=== PATIENT | male | born 1985 | race Caucasian/White ===

== ENCOUNTER 2019-04-03 10:00 | Emergency (ER) | payer MEDICAID, OTHER ==
[~2019-04-03] VITALS: Ht 182.9 cm; Wt 81.6 kg
[2019-04-03] MEDS ORDERED: SODIUM CHLORIDE 0.9% 1,000 ML IVB ONE (10:36)
[2019-04-03] MEDS ORDERED: PANTOPRAZOLE 40 MG/10 ML VIAL INJ IV STA (10:36)
[2019-04-03] MEDS ORDERED: ALUM & MAG HYDROX-SIMETH LIQ(MAALOX) 30 ML PO ONE (10:45)
[2019-04-03] MEDS ORDERED: ONDANSETRON HCL 4 MG/2 ML VIAL IV ONE (10:45)
[2019-04-03] MEDS ORDERED: FAMOTIDINE 20 MG TAB PO ONE (10:45)
[2019-04-03] MEDS ORDERED: DONNATAL 5ml ORAL Elix (BELLADONNA ALK-PHENOBARB) PO ONE (10:45)
[2019-04-03 10:57] LABS: Basophils # (auto) 0.1 uL; Eosinophils # (auto) 0 uL; Lymphocytes # (auto) 1.1 uL; Monocytes # (auto) 0.3 uL; Neutrophils # (auto) 2.3 uL; Nucleated Red Blood Cells % 0.1 %
[2019-04-03 10:59] LABS: Basophils % (auto) 2.7 % (0.0-2.0); Eosinophils % (auto) 0.4 % (0.0-7.0); Hematocrit 50.7 % (41.0-53.0); Hemoglobin 17.7 g/dL (13.5-17.5); Lymphocytes % (auto) 28.8 % (10.0-50.0); Mean Corpuscular Hemoglobin 37.8 pg (28.0-32.0); Mean Corpuscular Hgb Conc. 34.8 g/dL (32.0-36.0); Mean Corpuscular Volume 108.6 fL (80.0-100.0); Monocytes % (auto) 7.3 % (0.0-12.0); Neutrophils % (auto) 60.8 % (37.0-80.0); Platelet Count (auto) 205 10^3/uL (140-450); Red Blood Cells 4.67 10^6/uL (4.5-5.90); Red Cell Distribution Width 14.2 % (11.8-14.3); White Blood Cell 3.9 10^3/uL (4.4-10.8)
[2019-04-03 11:13] LABS: INR 1.08 (0.9-1.15); Partial Thromboplastin Time 27.1 sec (23.64-32.05)
[2019-04-03 11:14] LABS: Calcium 8.5 mg/dL (8.5-10.1); Potassium 3.5 mmol/L (3.5-5.1)
[2019-04-03 11:18] LABS: Magnesium 2.2 mg/dL (1.6-2.6)
[2019-04-03 11:20] LABS: Albumin 3.8 g/dL (3.4-5.0); BUN/Creatinine Ratio 6.5; Bilirubin, Total 1.6 mg/dL (0.2-1.0); Total Protein 7.9 g/dL (6.4-8.2)
[2019-04-03] MEDS ORDERED: LORazepam 2MG/ML-1ML VIAL IV ONE (12:45)
[2019-04-03] MEDS ORDERED: NICOTINE 21MG/24 HR TOPICAL PATCH TD ONE (13:15)
[2019-04-03] MEDS ORDERED: FOLIC ACID 1 MG, MULTIPLE VITAMIN 10 ML, MAGNESIUM SULF SDV 50% 8 MEQ, THIAMINE INJ 100... INJ SCH ×5 (13:46)
[2019-04-03 16:37] LABS: Urine Bacteria NONE SEEN /hpf (None Seen); Urine Blood Negative /uL (Negative); Urine Mucus FEW (None Seen); Urine Specific Gravity 1.026 (1.001-1.035); Urine WBC 1 /hpf (0 - 3)
[2019-04-03 16:50] LABS: Amphetamine Screen, Urine NEGATIVE (NEGATIVE); Barbiturate Scree,Urine NEGATIVE (NEGATIVE); Benzodiazephine Screen, Urine NEGATIVE (NEGATIVE); Cannabinoid Screen, Urine POSITIVE (NEGATIVE); Cocaine Screen, Urine NEGATIVE (NEGATIVE); Opiate Scree,Urine NEGATIVE (NEGATIVE); Phencyclidine Screen, Urine NEGATIVE (NEGATIVE)
[2019-04-03 18:05] VITALS: BP 148/104
== END 2019-04-03 19:09 | disposition home or self-care (01) ==
LOC: ER 10:00
DX: F10.239 Alcohol dependence with withdrawal, unspecified (principal); K76.0 Fatty (change of) liver, not elsewhere classified; K52.9 Noninfective gastroenteritis and colitis, unspecified; D75.89 Other specified diseases of blood and blood-forming organs; I10 Essential (primary) hypertension; R11.2 Nausea with vomiting, unspecified; F17.210 Nicotine dependence, cigarettes, uncomplicated; F12.10 Cannabis abuse, uncomplicated; F15.10 Other stimulant abuse, uncomplicated; F14.10 Cocaine abuse, uncomplicated; Y90.6 Blood alcohol level of 120-199 mg/100 ml
CPT/HCPCS: 36415; 71046; 74176; 80053; 80307; 80320; 81001; 83690; 83735; 84443; 85025; 85610; 85730; 93005; 96361; 96365; 96366; 96375; 99285; C9113; J2060; J2405; J3411; J3475; J7030

== ENCOUNTER 2022-01-26 00:41 | Emergency (ER) | payer MEDICAID ==
[~2022-01-26] VITALS: Ht 182.9 cm; Wt 81.8 kg
[2022-01-26] MEDS ORDERED: ACETAMINOPHEN 500 MG TAB PO ONE (01:00)
[2022-01-26 01:17] LABS: Basophils # (auto) 0.1 10 ^3/uL (0-0.2); Basophils % (auto) 1.4 % (0.0-2.0); Eosinophils # (auto) 0.1 10 ^3/uL (0-0.8); Eosinophils % (auto) 0.7 % (0.0-7.0); Hematocrit 44.2 % (41.0-53.0); Lymphocytes % (auto) 20.9 % (10.0-50.0); Mean Corpuscular Hemoglobin 31.6 pg (28.0-32.0); Mean Corpuscular Hgb Conc. 34.1 g/dL (32.0-36.0); Mean Corpuscular Volume 92.7 fL (80.0-100.0); Monocytes # (auto) 0.9 10 ^3/uL (0-1.3); Monocytes % (auto) 9.5 % (0.0-12.0); Neutrophils # (auto) 6.3 10 ^3/uL (1.6-8.6); Neutrophils % (auto) 67.5 % (37.0-80.0); Nucleated Red Blood Cells % 0.1 %; Red Blood Cells 4.76 10^6/uL (4.5-5.90); Red Cell Distribution Width 13.5 % (11.8-14.3); White Blood Cell 9.4 10^3/uL (4.4-10.8)
[2022-01-26 01:38] LABS: Albumin 3.7 g/dL (3.4-5.0); BUN/Creatinine Ratio 15.6; Calcium 9.1 mg/dL (8.5-10.1); Potassium 4.1 mmol/L (3.5-5.1)
[2022-01-26 01:50] LABS: Bilirubin, Total 1.3 mg/dL (0.2-1.0); Magnesium 2.5 mg/dL (1.6-2.6)
[2022-01-26 02:51] VITALS: BP 24/76
== END 2022-01-26 02:53 | disposition home or self-care (01) ==
LOC: ER 00:44
DX: R07.89 Other chest pain (principal); K21.9 Gastro-esophageal reflux disease without esophagitis; F17.210 Nicotine dependence, cigarettes, uncomplicated; Z88.0 Allergy status to penicillin
CPT/HCPCS: 36415; 71045; 80053; 83735; 84484; 85025; 93005

== ENCOUNTER 2023-04-10 18:31 | Emergency (ER) | payer MEDICAID ==
[~2023-04-10] VITALS: Ht 182.9 cm; Wt 80.4 kg
[2023-04-10 21:19] VITALS: BP 126/82; PULSE 58; RESP 18; TEMP 98; O2SAT 99
== END 2023-04-10 21:18 | disposition home or self-care (01) ==
LOC: ER 18:31
DX: I82.612 Acute embolism and thrombosis of superficial veins of left upper extremity (principal); F17.210 Nicotine dependence, cigarettes, uncomplicated; F15.90 Other stimulant use, unspecified, uncomplicated
CPT/HCPCS: 93971